=== PATIENT | male | born 1990 ===

== ENCOUNTER 2023-02-20 01:33 | Emergency (ER) | payer SELFPAY | END 2023-02-20 01:42 | disposition home or self-care (01) | LOC: MW.ED 01:33 | DX: F10.129 Alcohol abuse with intoxication, unspecified (principal) | CPT/HCPCS: 99282; 99284 ==

== ENCOUNTER 2023-02-20 02:37 | Emergency (ER) | payer SELFPAY ==
[2023-02-20] MEDS ORDERED: Diphtheria,Pertussis(Acell),Tetanus Vaccine 0.5 ML Syringe IM ONE (02:51)
== END 2023-02-20 03:16 | disposition home or self-care (01) ==
LOC: MW.ED 02:37
DX: T75.4XXA Electrocution, initial encounter (principal); Z23 Encounter for immunization
CPT/HCPCS: 90471; 90715; 99283; 99283-25